=== PATIENT | male | born 1995 | race African-American/Black ===

== ENCOUNTER 2017-02-15 18:27 | Emergency (ER) | payer OTHER ==
[~2017-02-15] VITALS: Ht 182.9 cm; Wt 81.6 kg
[2017-02-15 19:05] VITALS: BP 163/100
--- NOTE | 2017-02-15 19:05 | PHYS DOC ---
Past Medical History Past Medical History: No Pertinent History Past Surgical History: Splenectomy Alcohol Use: None Drug Use: None Adult General Chief Complaint Chief Complaint: SORE THROAT HPI HPI Patient is a 21 year old male presents emergency department stating he has a cold. He states that this started last night. Patient denies any fever and he states that he has had nasal congestion. He has not taken anything over-the- counter. He has an elevated blood pressure here in the emergency department. He states that he's does not have a history of high blood pressure. Review of Systems Review of Systems Constitutional: Denies fever or chills [] Eyes: Denies change in visual acuity, redness, or eye pain [] HENT: nasal congestion and sore throat [] Respiratory: Denies cough or shortness of breath [] Cardiovascular: No additional information not addressed in HPI [] GI: Denies abdominal pain, nausea, vomiting, bloody stools or diarrhea [] : Denies dysuria or hematuria [] Musculoskeletal: Denies back pain or joint pain [] Integument: Denies rash or skin lesions [] Neurologic: Denies headache, focal weakness or sensory changes [] Endocrine: Denies polyuria or polydipsia [] Physical Exam Physical Exam Constitutional: Well developed, well nourished, no acute distress, non-toxic appearance. [] HENT: Normocephalic, atraumatic, bilateral external ears normal, oropharynx moist, no oral exudates, nose normal. Bilateral tympanic membranes appear to be normal. Patient with frontal sinus tenderness no maxillary sinus tenderness noted throat with postnasal drip no erythematous no redness no exudate noted. Eyes: PERRLA, EOMI, conjunctiva normal, no discharge. [] Neck: Normal range of motion, no tenderness, supple, no stridor. [] Cardiovascular:Heart rate regular rhythm, no murmur [] Lungs & Thorax: Bilateral breath sounds clear to auscultation [] Skin: Warm, dry, no erythema, no rash. [] Back: No tenderness Extremities: No tenderness, no cyanosis, no clubbing, ROM intact, no edema. [] Neurologic: Alert and oriented X 3, normal motor function, normal sensory function, no focal deficits noted. [] Psychologic: Affect normal, judgement normal, mood normal. [] EKG EKG [] Radiology/Procedures Radiology/Procedures [] Course & Med Decision Making Course & Med Decision Making Pertinent Labs and Imaging studies reviewed. (See chart for details) Patient will be discharged home in stable condition signs symptoms to return back to emergency department as been provided. Recommended Mucinex DM over-the- counter to help with nasal congestion. Also recommended plenty of fluids Tylenol or ibuprofen for fever chills or generalized body aches and discomfort. Was instructed to keep a log of his blood pressure and to follow-up with the primary care physician. He'll be provided with a list to follow up with. [] Dragon Disclaimer Dragon Disclaimer This electronic medical record was generated, in whole or in part, using a voice recognition dictation system. Departure Departure Impression: Primary Impression: URI (upper respiratory infection) Disposition: 01 HOME, SELF-CARE Condition: STABLE Patient Instructions: Upper Respiratory Infection, Adult, [id number] Additional Instructions: Activity as tolerated. Coricidin HBP to help with nasal congestion. As directed by trial mgr over- the-counter. Use next DM [id number] instructed by trial mgr. Tylenol or ibuprofen for fever chills or generalized body aches and discomfort. Drink plenty of fluids. Monitor your blood pressure and keep a log of this will follow-up to primary care physician take to lock with you. Follow-up the primary care physician next 3-5 days. Return back to emergency department signs symptoms of become worse. DOROTHY SCHROEDER APRN Feb 15, 2017 19:05
== END 2017-02-15 19:15 | disposition home or self-care (01) ==
LOC: ER 18:27
DX: J06.9 Acute upper respiratory infection, unspecified (principal)
CPT/HCPCS: 99281